=== PATIENT | female | born 1955 | race Two or more races ===

== ENCOUNTER → 2025-03-02 | Day surgery (SDC) | payer OTHER ==
[2025-02-27 14:10] VITALS: BP 132/85
[~2025-03-02] VITALS: Ht 172.7 cm; Wt 72.6 kg
[~2025-03-02] MED LIST: CEFAZOLIN SODIUM 1,000 MG VIAL IV ONE; CHLORHEXIDINE GLUCONATE 120 ML BOTTLE TOP ONE; LEVOTHYROXINE112 MC1 PO; [UNRECOGNIZED DRUG - OTHER]
== END | disposition home or self-care (01) ==
LOC: ADM 02-27 15:15 → CIR.AMB 02-27 15:15
PROVIDERS: ATTEND Surgery
DX: C50.411 Malignant neoplasm of upper-outer quadrant of right female breast (principal)